=== PATIENT | female | born 1970 | race Caucasian/White ===

== ENCOUNTER → 2019-01-24 | Day surgery (SDC) | payer OTHER ==
[2019-01-20 16:09] LABS: BASOPHILS # (AUTO) 0.1 (0.0-0.1); BASOPHILS % 0.7 % (0.0-1.0); EOSINOPHILS # (AUTO) 0.3 (0.0-0.4); EOSINOPHILS % 4.4 % (0.0-6.0); HEMATOCRIT 39.4 % (34.2-44.1); HEMOGLOBIN 13.5 g/dL (12.0-16.0); LYMPHOCYTES % 28.7 % (18.0-39.1); MEAN CORPUSCULAR HEMOGLOBIN 30.1 pg (28-32); MEAN CORPUSCULAR HGB CONC 34.3 g/dL (31-35); MEAN CORPUSCULAR VOLUME 87.9 fL (81-99); MONOCYTES # (AUTO) 0.5 (0.2-0.8); MONOCYTES % 7.4 % (4.4-11.3); NEUTROPHILS # (AUTO) 4.1 (2.1-6.9); NEUTROPHILS % 58.5 % (38.7-80.0); PLATELET COUNT 279 x10e3/uL (140-360); RED BLOOD COUNT 4.48 x10e6/uL (3.6-5.1); RED CELL DISTRIBUTION WIDTH 12.3 % (11.7-14.4)
[2019-01-20 16:25] LABS: ANION GAP 13.7 mmol/L (8-16); BLOOD UREA NITROGEN 9 mg/dL (7-26); BUN/CREATININE RATIO 11 (6-25); CALCIUM 9.8 mg/dL (8.4-10.2); CARBON DIOXIDE 26 mmol/L (22-29); CHLORIDE 101 mmol/L (98-107); CREATININE, SERUM 0.83 mg/dL (0.57-1.11); EST GLOMERULAR FILTRATION RATE > 60 ML/MIN (60-); GLUCOSE 106 mg/dL (74-118); POTASSIUM 3.7 mmol/L (3.5-5.1); SODIUM 137 mmol/L (136-145)
--- NOTE | 2019-01-20 16:27 | Diagnostic Imaging Report ---
EXAMINATION: CHEST 2 VIEWS INDICATION: Pre-operative COMPARISON: None FINDINGS: LINES/TUBES:None LUNGS:The lungs are well-inflated. No focal consolidation or pulmonary edema. PLEURA:No pleural effusion or pneumothorax. MEDIASTINUM:The cardiomediastinal silhouette appears normal in size and shape. BONES/SOFT TISSUES:No acute osseous injury. ABDOMEN:No free air under the diaphragm. IMPRESSION: No focal pneumonia or pulmonary edema. Signed by: Nilo Becker MD on 01/20/2019 4:24 PM
[~2019-01-24] MED LIST: ACETAMINOPHEN 1000 MG/100 ML IV ONE; AJOVY225 MG/1.5 IM; BUPIVACAINE 0.25% 30ML SDV INJ ONE; CEFAZOLIN SOD 1 GM VIAL ONE; DEXAMETHASONE SOD PHOS INJ 4 MG/ML VIAL ONE; EPHEDRINE SULFATE INJ 50 MG/10 ML SYR ONE; ESTROGENS CONJUGATED VAGINAL CR 45 GM TUBE PV ONE; FAMOTIDINE 20 MG/2 ML VIAL IV ONE; FENTANYL CITRATE/PF 100MCG/2 ML INJ ONE; GLYCOPYRROLATE INJ 1MG/ 5 ML SYR ONE; HYDRALAZINE HCL 20 MG/ML VIAL ONE; HYDROCHLOROTHIA25 MG PO; LIDOCAINE HCL 2% LOCAL INJ 5 ML SDV VIAL INJ ONE; MEPERIDINE HCL INJ 25 MG/ML VIAL ONE; MIDAZOLAM HCL 2 MG/2 ML VIAL ONE; NEOSTIGMINE 5 MG/5ML SYR ONE; ONDANSETRON HCL INJ 2MG/ML 2ML 2 MG/ML VIAL ONE; PROPOFOL IV EMULSION 10 MG/ML 20 ML VIAL ONE; PROPRANOLOL HCL80 MG PO; ROCURONIUM BROMIDE 10 MG/ML 5ML VIAL ONE; SEVOFLURANE INHAL SOLN 250 ML PEN BTL ONE
--- OUTSIDE RECORDS SUMMARY | 2019-01-24 05:23 | XMS REPORT ---
Author [facility] Address Unknown Phone Unavailable Care Team Providers Care Senior Recruiter Name Role Phone Sapna DURANT Unavailable Unavailable Payers Payer Name Policy Type Policy Number Effective Date Expiration Date Problems This patient has no known problems. Allergies, Adverse Reactions, Alerts Allergy Name Allergy Type Status Severity Reaction(s) Onset Date Inactive Date Treating Clinician Comments naproxen sodium DA Active SV 2015-07-13 00:00:00 latex DA Active U 2015-07-13 00:00:00 Medications This patient has no known medications. Results Test Description Test Time Test Comments Text Results Atomic Results Result Comments CHEST 2 VIEWS 2019-01-20 16:23:00 [facility] [address] [place] [id number] Patient Name: GUILLERMO CERVANTES MR #: [id number] : 1970 Age/Sex: 48/F Req #: [id number] Adm Physician: Ordered by: NINI DURANT MD Report #: [id number] Location: OR Room/Bed: Procedure: [id number] DX/CHEST 2 VIEWS Exam Date: 01/20/19 Exam Time: 1610 REPORT STATUS: Signed EXAMINATION: CHEST 2 VIEWS INDICATION: Pre-operative COMPARISON: None FINDINGS: LINES/TUBES:None LUNGS:The lungs are well-inflated. No focal consolidation or pulmonary edema. PLEURA:No pleural effusion or pneumothorax. MEDIASTINUM:The cardiomediastinal silhouette appears normal in size and shape. BONES/SOFT TISSUES:No acute osseous injury. ABDOMEN:No free air under the diaphragm. IMPRESSION: No focal pneumonia or pulmonary edema. Signed by: Yvonne Becker MD on 01/20/2019 4:24 PM Dictated By: YVONNE BECKER MD 1623 Transcribed By: CARLENE on 01/20/19 1624 COPY TO: NINI DURANT MD
[2019-01-24 14:35] VITALS: BP 157/89
--- NOTE | 2019-01-31 00:37 | Operative Report ---
DATE OF PROCEDURE: 01/24/2019 SURGEON: Gail Montoya MD FRONT END APPLICATION DEVELOPER: Ashley Garcia MD. PREOPERATIVE DIAGNOSIS: Abnormal uterine bleeding. POSTOPERATIVE DIAGNOSIS: Abnormal uterine bleeding. PROCEDURE PERFORMED: Total laparoscopic hysterectomy with bilateral salpingectomy. ANESTHESIA: General. ESTIMATED BLOOD LOSS: 100 mL. COMPLICATIONS: None. FINDINGS: The patient with an enlarged fibroid uterus and adhesions within the pelvis. SPECIMENS: Uterus with attached cervix and bilateral fallopian tubes. INDICATIONS: The patient is a 48-year-old, two, para two, with history of abnormal uterine bleeding and uterine fibroids who has failed medical management, desiring definitive surgical management. PROCEDURE NOTE: Prior to operation, risks, benefits, indications, alternatives were discussed and consent was reconciled. The patient was brought to the operating room and was properly identified. She was placed on the operating table and underwent general endotracheal anesthesia. She was then repositioned to the dorsal lithotomy position in adjustable Lamont stirrups and prepped and draped in typical sterile fashion for a laparoscopic hysterectomy. A time-out was then performed. A Sinha catheter was placed in the bladder. A weighted speculum was then placed in the vagina with visualization of the cervix which was grasped along the anterior lip using a single-tooth tenaculum. This facilitated placement of the V Care uterine manipulator followed by removal of the single-tooth and speculum. Attention was then turned to the laparoscopic portion of the procedure. The infraumbilical skin was infiltrated with 0.5% Marcaine and incised using scalpel to create a 10 mm incision. A trocar was then placed there under direct visualization. Abdomen was insufflated with CO2 gas to a maximal pressure of 15 mmHg. The abdomen and pelvis were inspected with the above-noted findings. Secondary 5 mm trocars were then placed in the left and right lower quadrants under direct visualization with the laparoscope. After thorough inspection of the pelvis, both ureters were visualized and peristalsis noted. Their course was well away from the planned procedure. A LigaSure was introduced and used to coagulate and divide the utero-ovarian ligament and to transect the right fallopian tube from the adnexa. This incision was carried along the mesosalpinx to the broad ligament. The LigaSure was then used to coagulate and divide the right round ligament, and this incision was continued along the anterior leaf of the broad ligament, undermining and dividing the vesicouterine peritoneal reflection laterally to medially to the right of the midline. The posterior leaf of the broad ligament was then coagulated and divided to the level of the utero-ovarian ligament. This was coagulated and divided with good hemostasis. The same procedure was then performed on the contralateral side. Sharp and blunt dissection were then used to mobilize the bladder off the lower uterine segment cervix and upper vagina. Both uterine vessels were skeletonized, coagulated, and divided with the LigaSure down to the level of the internal cervical os. All pedicles were inspected and found to be hemostatic. The monopolar and LigaSure was used to create the colpotomy incision against the VCare cup. Attention was then returned to the vagina where the uterus and fallopian tubes were removed from the patient's vagina. Good hemostasis was noted. The vaginal cuff was then repaired with 0 Vicryl suture in a continuous fashion. Good hemostasis was noted. A vaginal pack was placed and attention was returned to laparoscope. The abdomen and pelvis were copiously irrigated with normal saline. All pedicles were inspected and found to be hemostatic. The vaginal cuff was inspected and found to be hemostatic. The umbilical port was then removed and replaced with a Avtar Nnacy. A 5 mm camera was used to visualize the placement of 0 Vicryl sutures in the umbilical port site via the Avtar Nancy device. Two additional port sites were then removed under direct visualization. All incisions were covered with Dermabond and all incisions were closed in a subcuticular fashion with 4-0 Vicryl and covered with Dermabond. The patient was awakened from anesthesia and extubated in the OR. She was authorized to be taken to the recovery room in good condition. All sponge, lap, needle, instrument counts were correct x2 at the end of the procedure. MD AMANDA Vo/MODEhsan /[id number]
== END | disposition home or self-care (01) ==
LOC: OR 05:15
PROVIDERS: ATTEND Obstetrics & Gynecology Obstetrics
DX: D25.1 Intramural leiomyoma of uterus (principal); N72 Inflammatory disease of cervix uteri; N80.0 Endometriosis of uterus; I10 Essential (primary) hypertension; G43.909 Migraine, unspecified, not intractable, without status migrainosus; G47.33 Obstructive sleep apnea (adult) (pediatric); E66.01 Morbid (severe) obesity due to excess calories; K21.9 Gastro-esophageal reflux disease without esophagitis; K76.0 Fatty (change of) liver, not elsewhere classified; N20.0 Calculus of kidney; F41.9 Anxiety disorder, unspecified; Z88.8 Allergy status to other drugs, medicaments and biological substances; Z91.040 Latex allergy status; Z01.810 Encounter for preprocedural cardiovascular examination; Z01.812 Encounter for preprocedural laboratory examination; Z01.818 Encounter for other preprocedural examination; Z87.891 Personal history of nicotine dependence
CPT/HCPCS: 36415; 58571; 71046; 80048; 81025; 84702; 85025; 86850; 86900; 88307; 93005; J0131; J0360; J0690; J1100; J2001; J2175; J2250; J2405; J2704; J3010; J3490

== ENCOUNTER 2019-02-02 21:13 | Emergency (ER) | payer OTHER ==
[~2019-02-02] VITALS: Ht 154.9 cm; Wt 83.0 kg
[~2019-02-02 21:13] MED LIST changes: -ACETAMINOPHEN 1000 MG/100 ML IV ONE; -BUPIVACAINE 0.25% 30ML SDV INJ ONE; -CEFAZOLIN SOD 1 GM VIAL ONE; -DEXAMETHASONE SOD PHOS INJ 4 MG/ML VIAL ONE; -EPHEDRINE SULFATE INJ 50 MG/10 ML SYR ONE; -ESTROGENS CONJUGATED VAGINAL CR 45 GM TUBE PV ONE; -FAMOTIDINE 20 MG/2 ML VIAL IV ONE; -FENTANYL CITRATE/PF 100MCG/2 ML INJ ONE; -GLYCOPYRROLATE INJ 1MG/ 5 ML SYR ONE; -HYDRALAZINE HCL 20 MG/ML VIAL ONE; -LIDOCAINE HCL 2% LOCAL INJ 5 ML SDV VIAL INJ ONE; -MEPERIDINE HCL INJ 25 MG/ML VIAL ONE; -MIDAZOLAM HCL 2 MG/2 ML VIAL ONE; -NEOSTIGMINE 5 MG/5ML SYR ONE; -ONDANSETRON HCL INJ 2MG/ML 2ML 2 MG/ML VIAL ONE; -PROPOFOL IV EMULSION 10 MG/ML 20 ML VIAL ONE; -ROCURONIUM BROMIDE 10 MG/ML 5ML VIAL ONE; -SEVOFLURANE INHAL SOLN 250 ML PEN BTL ONE
[2019-02-02 23:05] LABS: BASOPHILS % 0.6 % (0.0-1.0); EOSINOPHILS # (AUTO) 0.2 (0.0-0.4); EOSINOPHILS % 3.3 % (0.0-6.0); HEMATOCRIT 32.6 % (34.2-44.1); LYMPHOCYTES # (AUTO) 1.8 (1.0-3.2); MEAN CORPUSCULAR HEMOGLOBIN 30.4 pg (28-32); MEAN CORPUSCULAR HGB CONC 33.7 g/dL (31-35); MEAN CORPUSCULAR VOLUME 90.1 fL (81-99); MONOCYTES # (AUTO) 0.4 (0.2-0.8); MONOCYTES % 6.1 % (4.4-11.3); NEUTROPHILS # (AUTO) 4.6 (2.1-6.9); NEUTROPHILS % 64.2 % (38.7-80.0); PLATELET COUNT 342 x10e3/uL (140-360); RED BLOOD COUNT 3.62 x10e6/uL (3.6-5.1)
[2019-02-02 23:18] LABS: INR 0.83; PROTHROMBIN TIME 11.9 seconds (11.9-14.5)
[2019-02-02 23:29] LABS: ANION GAP 14.7 mmol/L (8-16); BLOOD UREA NITROGEN 13 mg/dL (7-26); BUN/CREATININE RATIO 13 (6-25); CALCIUM 9.8 mg/dL (8.4-10.2); CARBON DIOXIDE 27 mmol/L (22-29); CHLORIDE 101 mmol/L (98-107); CREATININE, SERUM 0.97 mg/dL (0.57-1.11); EST GLOMERULAR FILTRATION RATE > 60 ML/MIN (60-); GLUCOSE 127 mg/dL (74-118); POTASSIUM 3.7 mmol/L (3.5-5.1); SODIUM 139 mmol/L (136-145)
== END 2019-02-03 | disposition home or self-care (01) ==
LOC: ER 21:13
DX: I87.2 Venous insufficiency (chronic) (peripheral) (principal); Z90.710 Acquired absence of both cervix and uterus; I10 Essential (primary) hypertension
CPT/HCPCS: 36415; 80048; 85025; 85610; 85730; 93970; 99283

== ENCOUNTER → 2022-08-18 | Outpatient (CLI) | payer OTHER | LOC: MAMMO 13:56 | PROVIDERS: ATTEND Family Medicine | DX: Z12.31 Encounter for screening mammogram for malignant neoplasm of breast (principal) | CPT/HCPCS: 77067 ==